=== PATIENT | female | born 1995 | race Caucasian/White ===

== ENCOUNTER 2019-05-09 20:56 | Observation (INO) ==
[2019-05-09 22:02] LABS: Basophils # (auto) 0.02 K/uL (0-0.2); Basophils % (auto) 0.3 %; Eosinophils # (auto) 0.18 K/uL (0-0.5); Eosinophils % (auto) 2.3 %; Hematocrit (blood only) 43.1 % (37-47); Hemoglobin 14.1 g/dL (12.0-16.0); Immature Granulocytes # (auto) 0.01 K/uL (0.00-0.02); Immature Granulocytes % (auto) 0.1 %; Lymphocytes # (auto) 2.91 K/uL (1.2-3.4); Lymphocytes % (auto) 36.5 %; Mean Corpuscular Hemoglobin 30.5 pg (25-34); Mean Corpuscular Hgb Conc 32.7 g/dL (32-36); Mean Corpuscular Volume 93.1 fL (80-100); Mean Platelet Volume 10.9 fL (7.4-10.4); Monocytes # (auto) 0.64 K/uL (0.11-0.59); Neutrophils # (auto) 4.22 K/uL (1.4-6.5); Neutrophils % (auto) 52.8 %; Platelet Count 261 K/uL (130-400); RDW Coefficient of Variation 12.7 % (11.5-14.5); RDW Standard Deviation 43.1 fL (36.4-46.3); Red Blood Count 4.63 M/uL (4.2-5.4); White Blood Count 7.98 K/uL (4.8-10.8)
[2019-05-09] MEDS ORDERED: SODIUM CHLORIDE 0.9% 1000ML 1,000 ML IV ONE (22:05)
[2019-05-09] MEDS ORDERED: ONDANSETRON INJ 2 MG/ML 2 ML VIAL IV STA (22:05)
[2019-05-09 22:18] LABS: Appearance Urine Cloudy (Clear); Bacteria Urine Automated 2+ (Negative); Bilirubin Urine Negative (Negative); Blood Urine 1+ (Negative); Color Urine Yellow; Epithelial Cell Urine Auto >30 /lpf (0-5); Glucose Urine UA Negative (Negative); Ketones Urine Negative (Negative); Leukocyte Esterase Urine Negative (Negative); Nitrite Urine Negative (Negative); Protein Urine Negative (Negative); Specific Gravity Urine 1.014 (1.000-1.030); Urobilinogen Urine Negative (Negative); pH Urine 7.5 (4.5-7.5)
[2019-05-09 22:22] LABS: Pregnancy Test, Serum Negative (Negative)
[2019-05-09 22:23] LABS: Albumin Level 4.4 gm/dl (3.4-5.0); BUN Creatinine Ratio 14.4 (10-20); Calcium 9.2 mg/dl (8.5-10.1); Creatinine Clr Calc Pharmacy 103.6 ml/min; Est GFR (African American) 107.4; Est GFR (Non-African American) 92.6; Potassium 3.5 mmol/L (3.5-5.1)
[2019-05-09] MEDS: HYDROmorphone INJ 0.5 MG/0.5 ML SYR IV PRN (22:25)
[2019-05-09 22:26] LABS: Albumin Globulin Ratio 1.1 (0.9-2); Bilirubin,Total 0.2 mg/dl (0.2-1); Globulin 3.9 gm/dl (2.5-4.0); Total Protein 8.3 gm/dl (6.4-8.2)
[2019-05-09] MEDS ORDERED: IOVERSOL 100ml IV PRN (22:35)
[2019-05-09 22:46] LABS: Cast Urine Automated 0 /lpf (0-5)
--- NOTE | 2019-05-09 22:56 | CT Scan Report ---
ABDOMEN AND PELVIS CT WITH IV CONTRAST CT DOSE: 371.51 mGy.cm HISTORY: left abd /flank pain TECHNIQUE: Multiaxial CT images of the abdomen and pelvis were performed following the use of intrave nous contrast. A dose lowering technique was utilized adhering to the principles of ALARA. COMPARISON STUDY: None. FINDINGS: The lung bases are clear. No fractures within the visualized osseous structures. Levoscolio sis of the lower thoracic and lumbar spine. The liver, gallbladder, pancreas, adrenal glands, and kid neys are unremarkable. There is an indeterminate 13 mm hypodense focus within the spleen posteriorly. This could represent an indeterminate splenic lesion or possibly a focal splenic infarct. No retrope ritoneal lymphadenopathy. The uterus is retroflexed. An intrauterine device appears in good position. Normal bladder. Trace pelvic free fluid. No bowel wall thickening or obstruction. The appendix is no t identified with certainty. No inflammatory changes at the cecal base. IMPRESSION: 1. An indeterminate 13 mm hypodense focus within the spleen posteriorly. This could represent an inde terminate splenic lesion or possibly a small focal splenic infarct. 2. Trace pelvic free fluid, likely physiologic. 3. No bowel wall thickening or obstruction. 4. Levoscoliosis. 5. The appendix is not identified with certainty. No inflammatory changes at the cecal base. Electronically signed by: Saul Valladares M.D. 05/09/2019 10:54 PM
[2019-05-09] MEDS ORDERED: cefTRIAXone SODIUM 1,000 MG/50 ML BAG IV STA (23:07)
[2019-05-09 23:55] LABS: Prothrombin Time 10.3 Seconds (9.0-12.0)
--- NOTE | 2019-05-10 00:56 | Emergency Department Note ---
Entered by Wendy Gonzalez acting as a scribe for Huber Foreman MD ED Provider Note CHIEF COMPLAINT: Abdominal pain HISTORY OF PRESENT ILLNESS: The patient is a 23 year old female who presents to the Emergency Room with complaints of left sided abdominal pain that started 6 days ago. he patient reports that she has been experiencing left sided abdominal pain for the past 6 days. She notes that the pain is a 5/10. The patient reports that she has developed a rash on her right side that has radiated to her upper back. She n otes that she has nausea, and mild vomiting. She denies any past abdominal surgeries. The patient states that she recently got an IUD put in place a month ago, but denies any immediate pain or changes in her menstrual period. Pt denies LOC, headache, fevers, chills, diaphoresis, visual changes, neck pain, chest pain, breathing difficulties, back pain, melena, hematochezia, urinary symptoms, numbness, weakness, lymphadenopathy, or other complaints. REVIEW OF SYSTEMS: See HPI for pertinent positives and negatives. A total of ten systems were reviewed and were otherwise negative. PMHx/PSHx: No significant past medical history. SOCIAL HISTORY: Patient lives at home. PHYSICAL EXAM: GENERAL: Awake, alert, uncomfortable-appearing, in no distress HENT: Normocephalic, atraumatic. Oropharynx unremarkable. EYES: PERRL. Normal conjunctiva. Sclera non-icteric. NECK: Inspection normal. Non-tender. Supple. No nuchal rigidity. FROM. No masses. RESPIRATORY: Clear to auscultation. No wheezes. No rales. Normal respiratory effort. CARDIAC: Normal rate. Normal rhythm. No murmurs. No rubs. Extremities warm and well perfused. Pulses equal. No JVD. GI: Soft, non-distended. Diffuse tenderness to palpation, worse in left upper quadrant. No rebound or guarding. No masses. RECTAL: Deferred. MUSCULOSKELETAL: Atraumatic. Chest examination reveals no tenderness. The back is symmetrical on inspection without obvious abnormality. There is no CVA tenderness to palpation. No joint edema. LOWER EXTREMITIES: Calves are equal size bilaterally and non-tender. No edema. No discoloration. NEURO: Normal sensorium. No sensory or motor deficits noted. SKIN: Right lower flank and scattered upper back purple non blanching purpuric rash, palms and soles are normal. No jaundice noted. EMERGENCY DEPARTMENT COURSE: 2210: Past medical records reviewed. The patient was evaluated in room A2, and a complete history and physical examination were performed. 2315: I reevaluated the patient and updated her on her results, the patient is feeling better. 2345: I reviewed the patient's case with Dr. Mcelroy- [facility] Hospitalist. He will evaluate the patient for further management. MEDICAL DECISION MAKING: A2 Triage Nursing notes reviewed and agree them. The patient's history was concerning for abdominal pain and rash. Differential diagnosis: Etiologies such as appendicitis, diverticulitis, PUD, biliary pathology, UTI, pancreatitis, obstruction, mesenteric ischemia, aortic pathology, infections, inflammatory bowel disease, renal colic, HSP, rectoperineal hematoma, as well as others were entertained. Physical examination findings: As above. ER treatment provided: IV Dilaudid IV Zofran Saline hydration On reassessment the patient felt better. IV Rocephin Diagnostics interpreted by me: ECG: Normal sinus rhythm. There is no evidence of dysrhythmia specifically no A. fib. The labs revealed an unremarkable CBC. No anemia. No embolism differential. Coags normal. LFTs mildly elevated. Hand testing negative. Chemistries unremarkable. Urinalysis concerning for infection. Imaging studies: CT scan of the abdomen pelvis was performed. Radiology question of possible splenic infarct. The patient has moderate abdominal discomfort on examination, specifically in the left upper quadrant. She was treated with IV Dilaudid. She was feeling better with this. She has an unexplainable purpuric/ecchymotic rash in the ri ght flank. She has a UTI and elevated LFTs. CT imaging raises concerns for possible splenic infarct. She is not on oral contraceptives at this time. She has no dysrhythmia. She has no prior heart history and has no other findings to suggest thromboembolic disease. No family history of hypercoagulability. Consultation: A consultation was placed with the hospitalist service. The case was discussed and diagnostics were reviewed. The patient was evaluated in the ER for further treatment. IMPRESSION: Left upper quadrant abdominal pain, UTI, splenic infarction, elevated LFT, and rash PLAN: Admitted. The scribe's documentation has been prepared under my direction and personally reviewed by me in its entirety. I confirm that the note above accurately reflects all work, treatment, procedures, and medical decision making performed by me. Impression & Plan Abdominal pain, left upper quadrant, UTI (urinary tract infection), LFT elevation, Rash Past Med/Surg History Medical History No significant past medical history Social History Preferred Language: Occitan Feels Safe at Home: Yes Smoking Status: Never smoker Results & Data Vital Signs Vital Signs - 24 hr 05/09/19 21:02 05/09/19 21:53 05/09/19 23:19 Temperature 36.5 C Temperature Source Oral Sepsis Recent Fever Within 48 Hours No Sepsis New/Unexplained Change in Mental Status No Sepsis Action Taken by Nursing No Action Required Pulse Rate 86 Pulse Rate [Right Finger] 77 80 Respiratory Rate 18 16 16 Blood Pressure 122/87 Blood Pressure [Right Arm] 125/70 135/85 Blood Pressure Mean 98 Blood Pressure Mean [Right Arm] 88 101 Pulse Oximetry 100 99 95 Oxygen Delivery Method Room Air Room Air 05/10/19 00:22 Temperature Temperature Source Sepsis Recent Fever Within 48 Hours Sepsis New/Unexplained Change in Mental Status Sepsis Action Taken by Nursing Pulse Rate Pulse Rate [Right Finger] 88 Respiratory Rate 16 Blood Pressure Blood Pressure [Right Arm] 125/86 Blood Pressure Mean Blood Pressure Mean [Right Arm] 99 Pulse Oximetry 99 Oxygen Delivery Method Room Air Home Medications Current Medication List: was personally reviewed by me Laboratory Data Attestation: I reviewed the patient's lab results. Result diagrams: 05/09/19 21:41 05/09/19 21:41 Lab Results 05/09/19 05/09/19 05/09/19 Range/Units 21:22 21:41 21:41 WBC 7.98 (4.8-10.8) K/uL RBC 4.63 (4.2-5.4) M/uL Hgb 14.1 (12.0-16.0) g/dL Hct 43.1 (37-47) % MCV 93.1 (80-100) fL MCH 30.5 (25-34) pg MCHC 32.7 (32-36) g/dL RDW Std Deviation 43.1 (36.4-46.3) fL RDW Coeff of Derik 12.7 (11.5-14.5) % Plt Count 261 (130-400) K/uL MPV 10.9 H (7.4-10.4) fL Immature Gran % (Auto) 0.1 % Neut % (Auto) 52.8 % Lymph % (Auto) 36.5 % Hand % (Auto) 8.0 % Eos % (Auto) 2.3 % Baso % (Auto) 0.3 % Immature Gran # (Auto) 0.01 (0.00-0.02) K/uL Neut # (Auto) 4.22 (1.4-6.5) K/uL Lymph # (Auto) 2.91 (1.2-3.4) K/uL Hand # (Auto) 0.64 H (0.11-0.59) K/uL Eos # (Auto) 0.18 (0-0.5) K/uL Baso # (Auto) 0.02 (0-0.2) K/uL PT (9.0-12.0) Seconds INR (0.9-1.1) Sodium 138 (136-145) mmol/L Potassium 3.5 (3.5-5.1) mmol/L Chloride 106 (98-107) mmol/L Carbon Dioxide 24 (21-32) mmol/L Anion Gap 8.0 (3-11) BUN 13 (7-18) mg/dl Creatinine 0.89 (0.6-1.2) mg/dl Est Cr Clr Drug Dosing 103.6 ml/min Est GFR ( Amer) 107.4 Est GFR (Non-Af Amer) 92.6 BUN/Creatinine Ratio 14.4 (10-20) Glucose 78 (70-99) mg/dl POC Lactic Acid Varun (0.90-1.70) mmol/L Calcium 9.2 (8.5-10.1) mg/dl Total Bilirubin 0.2 (0.2-1) mg/dl AST 45 H (15-37) U/L ALT 84 H (12-78) U/L Alkaline Phosphatase 81 (45-117) U/L Total Protein 8.3 H (6.4-8.2) gm/dl Albumin 4.4 (3.4-5.0) gm/dl Globulin 3.9 (2.5-4.0) gm/dl Albumin/Globulin Ratio 1.1 (0.9-2) Lipase 118 (73-393) U/L HCG, Qual (Negative) Urine Color Yellow Urine Appearance Cloudy A (Clear) Urine pH 7.5 (4.5-7.5) Ur Specific Castella 1.014 (1.000-1.030) Urine Protein Negative (Negative) Urine Glucose (UA) Negative (Negative) Urine Ketones Negative (Negative) Urine Blood 1+ H (Negative) Urine Nitrite Negative (Negative) Urine Bilirubin Negative (Negative) Urine Urobilinogen Negative (Negative) Ur Leukocyte Esterase Negative (Negative) Urine WBC (Auto) 5-10 H (0-5) /hpf Urine RBC (Auto) 5-10 H (0-4) /hpf U Hyaline Cast (Auto) 0 (0-5) /lpf U Epithel Cells (Auto) >30 H (0-5) /lpf Urine Bacteria (Auto) 2+ H (Negative) Monoscreen (Negative) 05/09/19 05/09/19 05/09/19 Range/Units 21:41 21:41 21:41 WBC (4.8-10.8) K/uL RBC (4.2-5.4) M/uL Hgb (12.0-16.0) g/dL Hct (37-47) % MCV (80-100) fL MCH (25-34) pg MCHC (32-36) g/dL RDW Std Deviation (36.4-46.3) fL RDW Coeff of Derik (11.5-14.5) % Plt Count (130-400) K/uL MPV (7.4-10.4) fL Immature Gran % (Auto) % Neut % (Auto) % Lymph % (Auto) % Hand % (Auto) % Eos % (Auto) % Baso % (Auto) % Immature Gran # (Auto) (0.00-0.02) K/uL Neut # (Auto) (1.4-6.5) K/uL Lymph # (Auto) (1.2-3.4) K/uL Hand # (Auto) (0.11-0.59) K/uL Eos # (Auto) (0-0.5) K/uL Baso # (Auto) (0-0.2) K/uL PT 10.3 (9.0-12.0) Seconds INR 1.0 (0.9-1.1) Sodium (136-145) mmol/L Potassium (3.5-5.1) mmol/L Chloride (98-107) mmol/L Carbon Dioxide (21-32) mmol/L Anion Gap (3-11) BUN (7-18) mg/dl Creatinine (0.6-1.2) mg/dl Est Cr Clr Drug Dosing ml/min Est GFR ( Amer) Est GFR (Non-Af Amer) BUN/Creatinine Ratio (10-20) Glucose (70-99) mg/dl POC Lactic Acid Varun (0.90-1.70) mmol/L Calcium (8.5-10.1) mg/dl Total Bilirubin (0.2-1) mg/dl AST (15-37) U/L ALT (12-78) U/L Alkaline Phosphatase (45-117) U/L Total Protein (6.4-8.2) gm/dl Albumin (3.4-5.0) gm/dl Globulin (2.5-4.0) gm/dl Albumin/Globulin Ratio (0.9-2) Lipase (73-393) U/L HCG, Qual Negative (Negative) Urine Color Urine Appearance (Clear) Urine pH (4.5-7.5) Ur Specific Castella (1.000-1.030) Urine Protein (Negative) Urine Glucose (UA) (Negative) Urine Ketones (Negative) Urine Blood (Negative) Urine Nitrite (Negative) Urine Bilirubin (Negative) Urine Urobilinogen (Negative) Ur Leukocyte Esterase (Negative) Urine WBC (Auto) (0-5) /hpf Urine RBC (Auto) (0-4) /hpf U Hyaline Cast (Auto) (0-5) /lpf U Epithel Cells (Auto) (0-5) /lpf Urine Bacteria (Auto) (Negative) Monoscreen Negative (Negative) 05/10/19 Range/Units 00:13 WBC (4.8-10.8) K/uL RBC (4.2-5.4) M/uL Hgb (12.0-16.0) g/dL Hct (37-47) % MCV (80-100) fL MCH (25-34) pg MCHC (32-36) g/dL RDW Std Deviation (36.4-46.3) fL RDW Coeff of Derik (11.5-14.5) % Plt Count (130-400) K/uL MPV (7.4-10.4) fL Immature Gran % (Auto) % Neut % (Auto) % Lymph % (Auto) % Hand % (Auto) % Eos % (Auto) % Baso % (Auto) % Immature Gran # (Auto) (0.00-0.02) K/uL Neut # (Auto) (1.4-6.5) K/uL Lymph # (Auto) (1.2-3.4) K/uL Hand # (Auto) (0.11-0.59) K/uL Eos # (Auto) (0-0.5) K/uL Baso # (Auto) (0-0.2) K/uL PT (9.0-12.0) Seconds INR (0.9-1.1) Sodium (136-145) mmol/L Potassium (3.5-5.1) mmol/L Chloride (98-107) mmol/L Carbon Dioxide (21-32) mmol/L Anion Gap (3-11) BUN (7-18) mg/dl Creatinine (0.6-1.2) mg/dl Est Cr Clr Drug Dosing ml/min Est GFR ( Amer) Est GFR (Non-Af Amer) BUN/Creatinine Ratio (10-20) Glucose (70-99) mg/dl POC Lactic Acid Varun 1.67 (0.90-1.70) mmol/L Calcium (8.5-10.1) mg/dl Total Bilirubin (0.2-1) mg/dl AST (15-37) U/L ALT (12-78) U/L Alkaline Phosphatase (45-117) U/L Total Protein (6.4-8.2) gm/dl Albumin (3.4-5.0) gm/dl Globulin (2.5-4.0) gm/dl Albumin/Globulin Ratio (0.9-2) Lipase (73-393) U/L HCG, Qual (Negative) Urine Color Urine Appearance (Clear) Urine pH (4.5-7.5) Ur Specific Castella (1.000-1.030) Urine Protein (Negative) Urine Glucose (UA) (Negative) Urine Ketones (Negative) Urine Blood (Negative) Urine Nitrite (Negative) Urine Bilirubin (Negative) Urine Urobilinogen (Negative) Ur Leukocyte Esterase (Negative) Urine WBC (Auto) (0-5) /hpf Urine RBC (Auto) (0-4) /hpf U Hyaline Cast (Auto) (0-5) /lpf U Epithel Cells (Auto) (0-5) /lpf Urine Bacteria (Auto) (Negative) Monoscreen (Negative) Administered Medications Hydromorphone HCl (Dilaudid) 0.5 mg IV Q15M PRN PRN Reason: Pain Stop: 05/23/19 22:04 Last Admin: 05/09/19 22:25 Dose: 0.5 mg Documented by: [id number] Ioversol (Optiray 320 100ml) 93 ml IV ONCE PRN PRN Reason: Interaction Checking Stop: 05/13/19 22:34 Last Admin: 05/09/19 22:36 Dose: 93 ml Documented by: [id number] Discontinued Medications Sodium Chloride (Nss 1000ml) 1,000 mls @ 999 mls/hr IV .Q1H1M ONE Stop: 05/09/19 23:05 Last Infusion: 05/09/19 23:34 Dose: 0 mls/hr Documented by: [id number] Admin: 05/09/19 22:25 Dose: 999 mls/hr Documented by: [id number] Ceftriaxone Sodium (Rocephin) 1,000 mg in 50 mls @ 100 mls/hr IV NOW STA Stop: 05/09/19 23:36 Last Infusion: 05/09/19 23:54 Dose: 0 mls/hr Documented by: [id number] Admin: 05/09/19 23:19 Dose: 100 mls/hr Documented by: [id number] Ondansetron HCl (Zofran) 4 mg IV NOW STA Stop: 05/09/19 22:06 Last Admin: 05/09/19 22:25 Dose: 4 mg Documented by: [id number] Imaging Data Radiologist's Impression: Radiology results as stated below per my review and the radiologist's interpretation: ABDOMEN AND PELVIS CT WITH IV CONTRAST CT DOSE: 371.51 mGy.cm HISTORY: left abd /flank pain TECHNIQUE: Multiaxial CT images of the abdomen and pelvis were performed following the use of intravenous contrast. A dose lowering technique was utilized adhering to the principles of ALARA. COMPARISON STUDY: None. FINDINGS: The lung bases are clear. No fractures within the visualized osseous structures. Levoscoliosis of the lower thoracic and lumbar spine. The liver, gallbladder, pancreas, adrenal glands, and kidneys are unremarkable. There is an indeterminate 13 mm hypodense focus within the spleen posteriorly. This could represent an indeterminate splenic lesion or possibly a focal splenic infarct. No retroperitoneal lymphadenopathy. The uterus is retroflexed. An intrauterine device appears in good position. Normal bladder. Trace pelvic free fluid. No bowel wall thickening or obstruction. The appendix is not identified with certainty. No inflammatory changes at the cecal base. IMPRESSION: 1. An indeterminate 13 mm hypodense focus within the spleen posteriorly. This could represent an indeterminate splenic lesion or possibly a small focal splenic infarct. 2. Trace pelvic free fluid, likely physiologic. 3. No bowel wall thickening or obstruction. 4. Levoscoliosis. 5. The appendix is not identified with certainty. No inflammatory changes at the cecal base. Electronically signed by: Saul Valladares M.D. 05/09/2019 10:54 PM ECG Data Attestation: I personally reviewed and interpreted this ECG as follows: Indication: abdominal pain Rate (beats per minute): 90 Rhythm: normal sinus Findings: + other (No dsyrhythmia, normal QRS); no PAC, no PVC, no ST depression and no ST elevation Blood Pressure Blood Pressure Findings: Normal blood pressure Blood Pressure Disposition: did not require urgent referral Discharge Plan Visit Data Chief Complaint: Abdominal Pain Stated Complaint: IUD, ABDOMINAL BLOAT, CRAMPING, LT SIDE RASH ED Provider: Huber Foreman Discharge Problem: Abdominal pain, left upper quadrant, UTI (urinary tract infection), LFT elevation, Rash Patient Disposition: Being Evaluated by Hospitalist Forms Stand Alone Forms: My [facility] Percolate Prescriptions Prescriptions: No Action multivitamin Tablet 1 tab PO DAILY RF: 0 Iud 1 device intrauterine CONTINOUS RF: 0 Referrals Referrals: [place],[facility] [Primary Care Provider] - Discharge Problem: UTI (urinary tract infection) Qualifiers: Urinary tract infection type: site unspecified Hematuria presence: without hematuria Qualified Code(s): N39.0 - Urinary tract infection, site not specified The scribe's documentation has been prepared under my direction and personally reviewed by me in its entirety. I confirm that the note above accurately reflects all work, treatment, procedures, and medical decision making performed by me.
[2019-05-10] MEDS: HYDROmorphone INJ 0.5 MG/0.5 ML SYR IV PRN (01:20)
[2019-05-10 01:34] LABS: Lyme Ab IgG w/WB Rflx Negative (Negative); Lyme Ab IgM w/WB Rflx Negative (Negative)
--- NOTE | 2019-05-10 02:20 | History & Physical Report ---
Date of Service May 10, 2019 Assessment & Plan (1) Abdominal pain, left upper quadrant: 23 y/o F who denies any significant past medical history. Presented with a chief complaint of recurrent, severe LUQ abdominal pain. She also state that two day prior she had significant transient L CP. She noticed a small rash on her R flank and scratch fry over her back but could not recall scratching either area. She has not had fevers, SOB, nausea, vomiting, diarrhea or constipation. She describes "whole body bloating" and states that this has been an ongoing issue since implantation of and IUD 1 month ago. Prior to the IUD she had been taking estrogen-based oral control for a year. The pt was subjected to a CT of the abdomen which demonstrated a 13mm splenic lesion, possibly an infarct. Initial labs were notable for marginal LFT elevations and an ESR within normal limits. 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 This would be consistent with her symptoms which are mostly limited to abdominal pain. She is provided with a dose of Lovenox and we will order a D dimer and seek a consult with hematology prior to initiating a full hypercoagulable workup. Provided with tramadol for pain control. 2) CP - appears to have been transient, although this may be more concerning in the context of an acute splenic infarct. She is not at risk of CAD, however, we may need a CTA chest if her D dimer is +. 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 I cannot source a connection between the above two conditions at present. 4) LFT abnormalities - unclear etiology - we will repeat labs AM to determine a trend. 5) Bloating is a common side effect of Merina and she can take this up with her primary [facility]. There is no evidence of association with thrombosis. Full code - full dose Lovenox Total time for this admit including review of labs, meds, imaging, records - discussion with pt and ER attending - 41 min Present on Admission?: Yes (2) Rash: (3) LFT elevation: History of Present Illness Chief Complaint: Abdominal pain, CP, rash Primary Care Provider: [facility] 23 y/o F who denies any significant past medical history. Presented with a chief complaint of recurrent, severe LUQ abdominal pain. She also state that two day prior she had significant transient L CP. She noticed a small rash on her R flank and scratch fry over her back but could not recall scratching either area. She has not had fevers, SOB, nausea, vomiting, diarrhea or constipation. She describes "whole body bloating" and states that this has been an ongoing issue since implantation of and IUD 1 month ago. Prior to the IUD she had been taking estrogen-based oral control for a year. The pt was subjected to a CT of the abdomen which demonstrated a 13mm splenic lesion, possibly an infarct. Initial labs were notable for marginal LFT elevations and an ESR within normal limits. PMH: Denies Surgical: Surgery on a broken nose Social: Drinks on the weekends Family: No significant history or history of hypercoagulable disorders Allergies Allergy/AdvReac Type Severity Reaction Status Date / Time No Known Allergies Allergy Verified 05/09/19 23:08 Home Medications Home Medications Medication Instructions Recorded Confirmed Type Iud 1 device INTRAUTERINE CONTINOUS 05/09/19 05/09/19 History multivitamin 1 tab PO DAILY 05/09/19 05/09/19 History Past Med/Surg History Medical History No significant past medical history Social History Preferred Language: Slovenian Feels Safe at Home: Yes Smoking Status: Never smoker Review of Systems Review of Systems: Gen: Denies fevers, night sweats, rigors, fatigue, malaise, weight loss/gain ENT: Denies congestion, throat pain, hearing loss Eyes: Denies acute visual changes CV: Denies CP, palpitations Pulmonary: Denies SOB, cough, wheezing GI: Abdominal pain as per HPI Neuro: Denies acute or unilateral weakness, acute gait impairment, headache or acute visual changes Musculoskeletal: Denies joint pain, inflammation Endocrine: Denies polydipsia, polyuria Skin: Rash and scratch fry as per HPI Physical Exam Physical Exam: General: AAO x 3, no distress ENT: No erythema or exudates, no thrush Eyes: NICKY, EOMI Head and neck: Normocephalic, atraumatic, No JVD, neck is supple. Chest/heart: Nontender, S1,2, RRR, no murmurs, no gallops Lungs: CTAB, no wheezing or crackles Abdomen: Nontender, nondistended, BS+ Neuro: AAO x 3, speech is clear, no unilateral weakness or loss of sensation, coordination intact Musculoskeletal: No joint inflammation, muscle tenderness, FROM Skin: Rash on flank and raised scratch fry over back are consistent with dermatographia Extremities: No clubbing, cyanosis, edema Results & Data Vital Signs (Past 12 Hours) Vital Signs Temp Pulse Pulse Resp BP BP Pulse Ox 05/10/19 01:14 87 16 129/88 97 05/10/19 00:22 88 16 125/86 99 05/09/19 23:19 80 16 135/85 95 05/09/19 21:53 77 16 125/70 99 05/09/19 21:02 97.7 F 86 18 122/87 100 Code Status & VTE Plan VTE Prophylaxis Plan VTE Prophylaxis will be ordered: Yes PG Care Time/CCT Total # of Minutes Spent Total Time Spent with Patient: Total time spent is greater than 50% in coordination of care (as documented) at patient's floor/unit and/or counseling patient:
[2019-05-10] MEDS ORDERED: TRAMADOL HCL 50 MG TABLET PO PRN (03:15)
[2019-05-10] MEDS ORDERED: ONDANSETRON INJ 2 MG/ML 2 ML VIAL IV PRN (03:15)
[2019-05-10] MEDS ORDERED: ALUMINUM/MAGNESIUM SUSP 30 ML UDC PO PRN (03:15)
[2019-05-10] MEDS ORDERED: ZOLPIDEM TARTRATE 5 MG TAB PO PRN (03:15)
[2019-05-10] MEDS ORDERED: MAGNESIUM HYDROXIDE SUSP 30 ML UDC PO PRN (03:15)
[2019-05-10] MEDS ORDERED: ACETAMINOPHEN 325 MG TAB PO PRN (03:15)
[2019-05-10] MEDS ORDERED: POLYETHYLENE (MIRALAX) 17 GM PACK PO PRN (03:15)
[2019-05-10] MEDS ORDERED: ENOXAPARIN 80 MG/0.8 ML SYR SQ ONE (03:45)
[2019-05-10 03:50] LABS: D Dimer < 190 ug/L FEU (0-500)
[2019-05-10] MEDS ORDERED: INFLUENZA VIRUS QUAD VACCINE 0.5 ML SYR IM ONE (09:00)
[2019-05-10] MEDS ORDERED: INFLUENZA ADMINISTRATION CHARGE ONE (09:00)
[2019-05-10 09:25] LABS: Alanine Aminotransferase 63 U/L (12-78); Albumin Level 3.6 gm/dl (3.4-5.0); Alkaline Phosphatase 68 U/L (45-117); Aspartate Aminotransferase 33 U/L (15-37); Bilirubin Direct < 0.1 mg/dl (0-0.2); Bilirubin,Total 0.4 mg/dl (0.2-1); Total Protein 6.6 gm/dl (6.4-8.2)
--- NOTE | 2019-05-10 11:47 | Oncology Consultation ---
Date of Consultation May 10, 2019 Assessment & Plan (1) Abdominal pain, left upper quadrant: The finding in her spleen is very indeterminate. It is also not clear that this finding is the source of her abdominal pain. I might consider additional workup for the pain. She had some upper GI symptoms as well and this might represent some dyspepsia or reflux symptoms. She might also have had some anxiety-related symptoms. Hypodense lesions in the spleen have a long differential, including abscesses, infarcts, vascular abnormalities, tumors, granulomas, and cysts that can be caused by a variety of explanations, including trauma, congenital change, parasitic infection, lymphangiomas, and others. She has no signs or symptoms to suggest an abscess. She is young and has no other symptoms or findings to suggest a malignancy. She has no history of abdominal trauma. The appearance by CT is not typical of a splenic infarct, particularly an acute one. Splenic infarcts are most commonly embolic, typically from cardiogenic sources. She has no reason to have atherosclerotic disease. She is in sinus rhythm. I might get an echo to rule out an intracardiac shunt as a possible embolic source. Her history is not suggestive of a hypercoagulable state. Her CBC is normal and myeloproliferative neoplasia are quite rare in her age group. She is a young woman and these patients have higher rates of autoimmune disease, so screening for APLS is reasonable. In light of her age, we can also screen her for hypercoagulable states, though again I think they are unlikely and it is also not even clear she has had a thrombosis. However, we do not have a convincing way to confirm that this was not an infarct. She is low risk for bleeding, so I think continuing anticoagulation for now is reasonable. I will see her in the office to discuss what, if any, further testing is indicated. Present on Admission?: Yes History of Present Illness Attending Physician: Miguel Melendrez, DO History of Present Illness Ms. Rodrigo Narayan is a 23 year old woman with no significant past medical history. She came to the ER yesterday with about a week of left flank/LUQ abdominal pain. It was sharp and stabbing in character. She also complained of some bloating, abdominal distention, and dyspepsia. She denies any hematuria or dysuria. She had a CT A/P that revealed no acute findings except for some trace pelvic fluid and an indeterminate 13 mm hypodense focus within the spleen posteriorly. A splenic infarct was in the differential. She and her parents deny any personal or family history of thromboembolic disease. She denies any fevers, night sweats, arthralgias, joint swelling or redness, or unexplained fatigue or weight loss. She has had some stress and anxiety related to school recently. She has been on OCPs for a while and had a Mirena placed about a month ago. She denies any recent traumas or injuries. She also has no past history of abdominal trauma. She has a rash on her right flank that she first noticed about a week ago. She had no symptoms there but was looking in a mirror because she was bloated and noticed it. She has no prior history of any rashes. Allergies Allergy/AdvReac Type Severity Reaction Status Date / Time No Known Allergies Allergy Verified 05/09/19 23:08 Home Medications Home Medications Medication Instructions Recorded Confirmed Type Iud 1 device INTRAUTERINE CONTINOUS 05/09/19 05/09/19 History multivitamin 1 tab PO DAILY 05/09/19 05/09/19 History Patient History Medical History No significant past medical history Social History Preferred Language: Barbadian Communication Ability: Effective Student Services Vice President Required: No Beliefs That Will Affect Care: None Current Living Situation: Other Current Living Situation Comment: frank Feels Safe at Home: Yes Smoking Status: Never smoker Hx Alcohol Use: Yes Hx Substance Use: No Review of Systems Constitutional: no fever, no sweats, no fatigue and no weight loss Eyes: no worsening vision Ear, Nose, Mouth, Throat: no epistaxis and no bleeding gums Respiratory: no cough and no dyspnea Cardiovascular: no chest pain and no palpitations Gastrointestinal: as per Subjective / HPI Genitourinary: no dysuria and no hematuria Musculoskeletal: no joint pain and no myalgia Integumentary: as per Subjective / HPI Neurologic: no dizziness and no headache(s) Hematologic / Lymphatic: no easy bleeding and no night sweats Physical Exam Constitutional: comfortable; no acute distress and not ill appearing Eyes: + anicteric sclerae and EOM intact bilaterally ENMT: external ear and nose normal, oropharynx normal Respiratory: normal respiratory effort, lungs clear to auscultation Cardiovascular: RRR, no murmur, no edema Gastrointestinal (Abdomen): Inspection/Auscultation: normal bowel sounds; abdomen not distended Percussion/Palpation: abdomen soft; abdomen nontender Musculoskeletal: Extremities: extremities normal to inspection No joint swelling, erythema, or tenderness Skin: The rash on her right flank is flat, not excoriated, and somewhat diffuse. It has an appearance suggestive of confluent petechial bleeding, though no changes consistent with bruising or trauma were evident. Psychiatric: A+Ox3, euthymic affect Lymphatic: no cervical or axillary lymphadenopathy Results & Data Vital Signs (Past 12 Hours) Vital Signs Temp Pulse Pulse Resp BP BP Pulse Ox 05/10/19 07:22 36.7 C 83 18 106/70 96 05/10/19 03:00 36.6 C 93 H 18 130/84 92 05/10/19 02:48 87 16 117/75 97 05/10/19 01:14 87 16 129/88 97 05/10/19 00:22 88 16 125/86 99 Laboratory Results Laboratory Results - last 24 hr 05/09/19 05/09/19 05/09/19 21:22 21:41 21:41 WBC 7.98 RBC 4.63 Hgb 14.1 Hct 43.1 MCV 93.1 MCH 30.5 MCHC 32.7 RDW Std Deviation 43.1 RDW Coeff of Derik 12.7 Plt Count 261 MPV 10.9 H Immature Gran % (Auto) 0.1 Neut % (Auto) 52.8 Lymph % (Auto) 36.5 Collin % (Auto) 8.0 Eos % (Auto) 2.3 Baso % (Auto) 0.3 Immature Gran # (Auto) 0.01 Neut # (Auto) 4.22 Lymph # (Auto) 2.91 Collin # (Auto) 0.64 H Eos # (Auto) 0.18 Baso # (Auto) 0.02 Peripher Smr Path Cons ESR PT INR D-Dimer Sodium 138 Potassium 3.5 Chloride 106 Carbon Dioxide 24 Anion Gap 8.0 BUN 13 Creatinine 0.89 Est Cr Clr Drug Dosing 103.6 Est GFR ( Amer) 107.4 Est GFR (Non-Af Amer) 92.6 BUN/Creatinine Ratio 14.4 Glucose 78 POC Lactic Acid Varun Calcium 9.2 Total Bilirubin 0.2 Direct Bilirubin AST 45 H ALT 84 H Alkaline Phosphatase 81 Total Protein 8.3 H Albumin 4.4 Globulin 3.9 Albumin/Globulin Ratio 1.1 Lipase 118 HCG, Qual Urine Color Yellow Urine Appearance Cloudy A Urine pH 7.5 Ur Specific Wildwood 1.014 Urine Protein Negative Urine Glucose (UA) Negative Urine Ketones Negative Urine Blood 1+ H Urine Nitrite Negative Urine Bilirubin Negative Urine Urobilinogen Negative Ur Leukocyte Esterase Negative Urine WBC (Auto) 5-10 H Urine RBC (Auto) 5-10 H U Hyaline Cast (Auto) 0 U Epithel Cells (Auto) >30 H Urine Bacteria (Auto) 2+ H ELISABETH Screen Beta-2-GPI IgG Ab Beta-2-GPI IgA Ab Beta-2-GPI IgM Ab Phosphatidylserine IgG Phosphatidylserine IgA Phosphatidylserine IgM Anti-Phospholipid Intrp Anti-Cardiolipin IgG Ab Anti-Cardiolipin IgA Ab Anti-Cardiolipin IgM Ab Lyme Disease IgG Ab Lyme Disease IgM Ab Monoscreen 05/09/19 05/09/19 05/09/19 21:41 21:41 21:41 WBC RBC Hgb Hct MCV MCH MCHC RDW Std Deviation RDW Coeff of Derik Plt Count MPV Immature Gran % (Auto) Neut % (Auto) Lymph % (Auto) Collin % (Auto) Eos % (Auto) Baso % (Auto) Immature Gran # (Auto) Neut # (Auto) Lymph # (Auto) Collin # (Auto) Eos # (Auto) Baso # (Auto) Peripher Smr Path Cons ESR PT 10.3 INR 1.0 D-Dimer Sodium Potassium Chloride Carbon Dioxide Anion Gap BUN Creatinine Est Cr Clr Drug Dosing Est GFR ( Amer) Est GFR (Non-Af Amer) BUN/Creatinine Ratio Glucose POC Lactic Acid Varun Calcium Total Bilirubin Direct Bilirubin AST ALT Alkaline Phosphatase Total Protein Albumin Globulin Albumin/Globulin Ratio Lipase HCG, Qual Negative Urine Color Urine Appearance Urine pH Ur Specific Wildwood Urine Protein Urine Glucose (UA) Urine Ketones Urine Blood Urine Nitrite Urine Bilirubin Urine Urobilinogen Ur Leukocyte Esterase Urine WBC (Auto) Urine RBC (Auto) U Hyaline Cast (Auto) U Epithel Cells (Auto) Urine Bacteria (Auto) ELISABETH Screen Beta-2-GPI IgG Ab Beta-2-GPI IgA Ab Beta-2-GPI IgM Ab Phosphatidylserine IgG Phosphatidylserine IgA Phosphatidylserine IgM Anti-Phospholipid Intrp Anti-Cardiolipin IgG Ab Anti-Cardiolipin IgA Ab Anti-Cardiolipin IgM Ab Lyme Disease IgG Ab Lyme Disease IgM Ab Monoscreen Negative 05/09/19 05/09/19 05/10/19 21:41 21:41 00:13 WBC RBC Hgb Hct MCV MCH MCHC RDW Std Deviation RDW Coeff of Derik Plt Count MPV Immature Gran % (Auto) Neut % (Auto) Lymph % (Auto) Collin % (Auto) Eos % (Auto) Baso % (Auto) Immature Gran # (Auto) Neut # (Auto) Lymph # (Auto) Collin # (Auto) Eos # (Auto) Baso # (Auto) Peripher Smr Path Cons ESR 7 PT INR D-Dimer Sodium Potassium Chloride Carbon Dioxide Anion Gap BUN Creatinine Est Cr Clr Drug Dosing Est GFR ( Amer) Est GFR (Non-Af Amer) BUN/Creatinine Ratio Glucose POC Lactic Acid Varun 1.67 Calcium Total Bilirubin Direct Bilirubin AST ALT Alkaline Phosphatase Total Protein Albumin Globulin Albumin/Globulin Ratio Lipase HCG, Qual Urine Color Urine Appearance Urine pH Ur Specific [place] Urine Protein Urine Glucose (UA) Urine Ketones Urine Blood Urine Nitrite Urine Bilirubin Urine Urobilinogen Ur Leukocyte Esterase Urine WBC (Auto) Urine RBC (Auto) U Hyaline Cast (Auto) U Epithel Cells (Auto) Urine Bacteria (Auto) ELISABETH Screen Beta-2-GPI IgG Ab Beta-2-GPI IgA Ab Beta-2-GPI IgM Ab Phosphatidylserine IgG Phosphatidylserine IgA Phosphatidylserine IgM Anti-Phospholipid Intrp Anti-Cardiolipin IgG Ab Anti-Cardiolipin IgA Ab Anti-Cardiolipin IgM Ab Lyme Disease IgG Ab Negative Lyme Disease IgM Ab Negative Monoscreen 05/10/19 05/10/19 05/10/19 03:23 08:28 08:33 WBC RBC Hgb Hct MCV MCH MCHC RDW Std Deviation RDW Coeff of Derik Plt Count MPV Immature Gran % (Auto) Neut % (Auto) Lymph % (Auto) Collin % (Auto) Eos % (Auto) Baso % (Auto) Immature Gran # (Auto) Neut # (Auto) Lymph # (Auto) Collin # (Auto) Eos # (Auto) Baso # (Auto) Peripher Smr Path Cons Pending ESR PT INR D-Dimer < 190 Sodium Potassium Chloride Carbon Dioxide Anion Gap BUN Creatinine Est Cr Clr Drug Dosing Est GFR ( Amer) Est GFR (Non-Af Amer) BUN/Creatinine Ratio Glucose POC Lactic Acid Varun Calcium Total Bilirubin 0.4 Direct Bilirubin < 0.1 AST 33 ALT 63 Alkaline Phosphatase 68 Total Protein 6.6 D Albumin 3.6 Globulin Albumin/Globulin Ratio Lipase HCG, Qual Urine Color Urine Appearance Urine pH Ur Specific Wild[place] Urine Protein Urine Glucose (UA) Urine Ketones Urine Blood Urine Nitrite Urine Bilirubin Urine Urobilinogen Ur Leukocyte Esterase Urine WBC (Auto) Urine RBC (Auto) U Hyaline Cast (Auto) U Epithel Cells (Auto) Urine Bacteria (Auto) ELISABETH Screen Beta-2-GPI IgG Ab Beta-2-GPI IgA Ab Beta-2-GPI IgM Ab Phosphatidylserine IgG Phosphatidylserine IgA Phosphatidylserine IgM Anti-Phospholipid Intrp Anti-Cardiolipin IgG Ab Anti-Cardiolipin IgA Ab Anti-Cardiolipin IgM Ab Lyme Disease IgG Ab Lyme Disease IgM Ab Monoscreen 05/10/19 09:05 WBC RBC Hgb Hct MCV MCH MCHC RDW Std Deviation RDW Coeff of Derik Plt Count MPV Immature Gran % (Auto) Neut % (Auto) Lymph % (Auto) Collin % (Auto) Eos % (Auto) Baso % (Auto) Immature Gran # (Auto) Neut # (Auto) Lymph # (Auto) Collin # (Auto) Eos # (Auto) Baso # (Auto) Peripher Smr Path Cons ESR PT INR D-Dimer Sodium Potassium Chloride Carbon Dioxide Anion Gap BUN Creatinine Est Cr Clr Drug Dosing Est GFR ( Amer) Est GFR (Non-Af Amer) BUN/Creatinine Ratio Glucose POC Lactic Acid Varun Calcium Total Bilirubin Direct Bilirubin AST ALT Alkaline Phosphatase Total Protein Albumin Globulin Albumin/Globulin Ratio Lipase HCG, Qual Urine Color Urine Appearance Urine pH Ur Specific [place] Urine Protein Urine Glucose (UA) Urine Ketones Urine Blood Urine Nitrite Urine Bilirubin Urine Urobilinogen Ur Leukocyte Esterase Urine WBC (Auto) Urine RBC (Auto) U Hyaline Cast (Auto) U Epithel Cells (Auto) Urine Bacteria (Auto) ELISABETH Screen Pending Beta-2-GPI IgG Ab Pending Beta-2-GPI IgA Ab Pending Beta-2-GPI IgM Ab Pending Phosphatidylserine IgG Pending Phosphatidylserine IgA Pending Phosphatidylserine IgM Pending Anti-Phospholipid Intrp Pending Anti-Cardiolipin IgG Ab Pending Anti-Cardiolipin IgA Ab Pending Anti-Cardiolipin IgM Ab Pending Lyme Disease IgG Ab Lyme Disease IgM Ab Monoscreen
--- NOTE | 2019-05-10 17:22 | Discharge Summary ---
Date of Service May 10, 2019 Admission HPI Per Admitting Provider 23 y/o F who denies any significant past medical history. Presented with a chief complaint of recurrent, severe LUQ abdominal pain. She also state that two day prior she had significant transient L CP. She noticed a small rash on her R flank and scratch fry over her back but could not recall scratching either area. She has not had fevers, SOB, nausea, vomiting, diarrhea or constipation. She describes "whole body bloating" and states that this has been an ongoing issue since implantation of and IUD 1 month ago. Prior to the IUD she had been taking estrogen-based oral control for a year. The pt was subjected to a CT of the abdomen which demonstrated a 13mm splenic lesion, possibly an infarct. Initial labs were notable for marginal LFT elevations and an ESR within normal limits. PMH: Denies Surgical: Surgery on a broken nose Social: Drinks on the weekends Family: No significant history or history of hypercoagulable disorders Admission Exam Per Admitting Provider Gen: Denies fevers, night sweats, rigors, fatigue, malaise, weight loss/gain ENT: Denies congestion, throat pain, hearing loss Eyes: Denies acute visual changes CV: Denies CP, palpitations Pulmonary: Denies SOB, cough, wheezing GI: Abdominal pain as per HPI Neuro: Denies acute or unilateral weakness, acute gait impairment, headache or acute visual changes Musculoskeletal: Denies joint pain, inflammation Endocrine: Denies polydipsia, polyuria Skin: Rash and scratch fry as per HPI Principal Diagnosis Abdominal Pain Splenic lesion Discharge Exam General: Alert, oriented. No acute distress HEENT: NC/AT, PERRLA, EOMI, oropharynx moist. Chest: Nontender to palpation. CV: RRR, Normal s1, s2. No murmurs appreciated Resp: Breath sounds clear bilaterally, no increased effort of breathing. No crackles/rhonchi/rales. Abdomen: Soft, nontender, nondistended. No guarding. No organomegaly appreciated. Some mild suprapubic tenderness Extremities: No edema in lower extremities bilaterally. Discharge Data Allergies Allergy/AdvReac Type Severity Reaction Status Date / Time No Known Allergies Allergy Verified 05/09/19 23:08 Consultations 05/09/19 23:39 ED Decision to Admit Stat 05/10/19 03:15 Consult Hematology Routine Ordered Studies 05/09/19 22:05 CT abd pelvis IV con only Stat Hospital Course (1) Abdominal pain, left upper quadrant: 23 y/o F with no significant PMHx who presented with LUQ abdominal pain and was found to have a 13mm splenic lesion on imaging. Admitted on May 10 2019 and discharged on the same after symptoms improved. Abd pain/Splenic lesion -CT abd/pelvis with noted 13mm splenic lesion -splenic infarct cannot be ruled out -D-dimer negative -pt previously on OCPs switched to Mirena in Mar 2019. States LUQ pain symptoms started since then. -Hypercoaguable labs ordered-pending on discharge -peripheral smear pending on discharge -echo to rule out PFO-pending read on discharge -pt will be called with results. -pain treated with tramadol in hospital. Advised on discharge to alternate tylenol and ibuprofen for pain. -pt also discharged on Xarelto 15mg BID for first 21 days; followed by 20mg t hereafter -followup scheduled with [facility] and Hematology on discharge. LFT abnormalities -resolved on discharge. Total Time Total Time Spent Total Time Spent (In Minutes): >30 Discharge Plan Discharge Items Patient Disposition: Home - Self-Care Reason For Visit: ABDOMINAL PAIN, CHEST PAIN Discharge Diagnosis: Abdominal Pain Splenic Lesion Activity: Per Instructions section Non-emergency contact: Primary Care Provider Call non-emergency contact if: your symptoms worsen and you have a fever Follow-up/Referrals: [facility] [Primary Care Provider] - Diet: Regular Addtl Attending Provider Instructions: You were seen and observed in the hospital for abdominal pain and a splenic lesion was noted in the area of your abdominal pain. You are still being worked up for this but stable enough to not have it done in the hospital. We will call you with your pending results. -Please followup with Dr. Rossy Condon of the [facility] (information provided below). Please call the office to set up a follow-up appointment in the next week. -Please also followup with Dr. Michael Escobar the network support analyst. His information is also provided. Please call his office to setup an appointment in the next week. -Please take your Xarelto medication as directed. Please take 15mg twice daily for the next 3 weeks and then 20mg per day thereafter with food. -Should your symptoms return or increase in intensity, or you suddenly develop fevers, chills, night sweats, chest pain, trouble breathing or calf tenderness, please go directly to the emergency room. It was a pleasure taking care of you during your stay here! Pending Studies at Discharge: Yes Stand-Alone Forms: My [facility] Medications and DC Order Prescriptions: New Xarelto 15 mg tablet 15 mg PO BID 21 Days Qty: 42 RF: 0 Xarelto 20 mg tablet 20 mg PO DAILY Qty: 90 RF: 0 Continued multivitamin Tablet 1 tab PO DAILY RF: 0 Iud 1 device intrauterine CONTINOUS RF: 0 Discharge Orders: Discharge Order (Routine); Ordered 05/10/19 Ordered By: Rossy Condon Admission Data Admit Date/Time: 05/10/19 02:18 Attending Provider: Miguel Melendrez Admit Provider: Froilan Mcelroy Primary Care Provider: [facility] Other Providers: Froilan Mcelroy ; Michael Escobar Other Interventions: Discharge Summary Assessment (RN) Last Done: 05/10/19 17:41 DC Date/Time DO NOT enter until pt leaves facility: 05/10/19 18:04 Supervising Physician Co-Signing Physician Notes I personally examined the patient and verified all newman points of history and exam, discussed case, and agree with decision making with Dr Condon. Feeling okay right now. Notes that abdominal pain seems to come and go. Discussed extensively current differential diagnosis, work-up plan treatment plan and follow-up plan. Discussed with patient and parents. All questions answered to the best of my ability and to their satisfaction. They expressed good understanding of our current working differentials and plans thereof. Vitals noted, in general she is awake and alert pleasant no distress. HEENT normocephalic atraumatic mucous members moist. Breathing unlabored no accessory muscle use good effort. No focal neuro deficits. Abdominal pain -Now resolved. Certainly splenic lesion is of concern, but as noted by hematology this may not actually be anything more than an incidental finding. She otherwise is stable for discharge, and should have outpatient follow-up in regards to her abdominal pain. We discussed seeking evaluation at her new PCPs office when she is having the pain, given that it is often easiest to discern an etiology when you are seeing a patient in the middle of the problem. The differential seems to be anything from gastritis/peptic ulcer disease spectrum to anxiety spectrum to abdominal wall discomfort to hormonal issues related to her Mirena to issues related to her splenic lesion. Splenic lesion -Uncertain etiology, but given that it is on the radiographic differential of possible infarct, while her work-up is in progress we discussed that while its low likelihood for this to be infarct/thromboembolic disease, the risk of leaving it untreated if it is would be potentially to lose more of her spleen, while the risk of being on a blood thinner is a low risk of bleeding and given that she is otherwise young and healthy a very high probability of bleeding that would be easy to manage if it occurred. She and her parents all expressed und erstanding of this approach. We will initiate Xarelto and treatment regimen as though treating clots. Discussed risks of bleeding discussed management of bleeding and discussed when to seek care for bleeding. When or if it is clear further the etiology of the splenic lesion, appears to not have anything to do with clotting, then the Xarelto can be discontinued. -echo and blood cultures pending, but endocarditis clinically appears unlikely -hypercoag w/u (most importantly antiphospholipids, ELISABETH) pending stable for discharge to home, close PCP and hematology f/u Resident Activity Tracking Resident Involvement: Resident Care Provided Care Provided: Adult Hospital Medicine
[2019-05-15 13:14] LABS: Anti Nuclear Antibody Screen NEGATIVE (NEGATIVE); B2 Glycoprotein IgA <9 SAU (<=20); B2 Glycoprotein IgG <9 SGU (<=20); B2 Glycoprotein IgM <9 SMU (<=20); Phosphatidylserine IgG <10 U/mL (<10); Phosphatidylserine IgM 28 U/mL (<25)
[2019-05-16 21:25] LABS: Protein S Functional(Activity) 103 % (60-140)
== END 2019-05-10 18:04 | disposition home or self-care (01) ==
LOC: 4W 20:56 → ED 20:56 → MERGE 05-10 02:18 → SUATTDRO 05-10 02:18 → 4W 05-10 02:48
DX: R07.9 Chest pain, unspecified; D73.89 Other diseases of spleen; R94.5 Abnormal results of liver function studies; R10.12 Left upper quadrant pain; R21 Rash and other nonspecific skin eruption